=== PATIENT | female | born 1990 | race Caucasian/White ===

== ENCOUNTER 2023-07-21 09:24 | Emergency (ER) | payer OTHER, SELFPAY ==
[2023-07-21] VITALS (12 sets, daily range): BP systolic 102–131; BP diastolic 59–83; PULSE 68–85; RESP 14–20; TEMP 36.4–36.7; O2SAT 100
--- NOTE | 2023-07-21 09:45 | ED.GENADULT ---
HPI - General Adult General Chief complaint: Unspecified Stated complaint: migraine, vision problems Time Seen by Provider: 07/21/23 09:36 History of Present Illness HPI narrative: 32-year-old female with a reported history of migraines reports for evaluation for a generalized migraine that started 30 minutes prior to arrival. Patient states 30 minutes prior to migraine starting, she began having loss of vision in her right peripheral eye. states she has experienced this in the past, however normally her headaches do not occur with the peripheral vision loss simultaneously. She is also reporting vertigo like symptoms. States it feels like the room is spinning which is worse when she moves her head quickly. She went to urgent care yesterday and states they did not do anything about it . She states her peripheral vision loss has improved since she has been in the ED and she is still feeling mildly vertiginous. She denies head injury or trauma, syncope, diplopia or blurred vision, chest pain or shortness of breath, palpitations, fever, focal numbness or weakness. Denies otalgia but does states she feels congested. She has not been taking her antihistamines because she is planning to see an overweaver soon. Related Data Allergies Allergy/AdvReac Type Severity Reaction Status Date / Time No Known Allergies Allergy Verified 07/21/23 09:57 Review of Systems Review of Systems: CONSTITUTIONAL: Denies fever, chills, or sweats. EYES: Denies visual changes, redness, or discharge. ENT: see HPI CARDIOVASCULAR: Denies chest pain, palpitations, or edema. RESPIRATORY: Denies cough or dyspnea. GASTROINTESTINAL: Denies abdominal pain, nausea, vomiting, or diarrhea. GENITOURINARY: Denies dysuria or hematuria. SKIN: Denies rash or itching. MUSCULOSKELETAL: Denies back pain, joint pain, or myalgia. NEUROLOGIC: See HPI PSYCHIATRIC: Denies anxiety or depression. Exam Narrative: GENERAL: Well-appearing, well-nourished, and in no acute distress. patient resting comfortably in exam bed. She is pleasant and conversational. Playing on her phone HEAD: Normocephalic, atraumatic. EYES: PERRLA and EOMI. peripheral vision intact on exam ENT: Nares clear, no rhinorrhea or epistaxis. Mucous membranes moist. posterior pharynx without erythema, edema, no tonsillar hypertrophy. Uvula is midline. Bilateral TMs are cedeno nonbulging. Normal canals. NECK: Supple. No nuchal rigidity CHEST: Clear to auscultation. No respiratory distress. HEART: Regular rate and rhythm. No murmur heard. Normal peripheral pulses. ABDOMEN: Soft, nontender, nondistended, normal active bowel sounds. EXTREMITIES: Normal range of motion. No edema. SKIN: Warm, dry, no rash. NEURO: No focal deficits. Alert and oriented x3. cranial nerves 2-12 intact. Strength 5/5 in BUE and BLE. Sensation intact throughout. Normal [id number]. No pronator drift. Course Vital Signs Vital signs: Vital Signs Temperature 97.6 F 07/21/23 09:26 Pulse Rate 74 07/21/23 09:26 Respiratory Rate 18 07/21/23 09:26 Blood Pressure 131/78 07/21/23 09:26 Pulse Oximetry 100 07/21/23 09:26 Temperature 97.6 F 07/21/23 09:26 Pulse Rate 74 07/21/23 09:26 Respiratory Rate 18 07/21/23 09:26 Blood Pressure 131/78 07/21/23 09:26 Pulse Oximetry 100 07/21/23 09:26 Medical Decision Making MDM Narrative Medical decision making narrative: 32-year-old female with a history of self-reported migraines reports for evaluation for migraine and peripheral vision loss which she has had in the past, Along with vertigo. See HPI for further history. Vitals are stable and patient is well-appearing on exam. She is neurovascularly intact. No symptoms of meningitis. SAH r/o with Winner rule. CBC and chemistries are unremarkable. COVID, flu and RSV are negative. negative. EKG shows sinus rhythm, [place] interval is short at 1:19 a.m., no delta waves, no ischemic change
[2023-07-21 10:06] LABS: Basophils Absolute Auto 0.1 K/mm3 (0.0-0.1); Basophils Percent Auto 0.5 % (0.2-1.2); Eosinophils Absolute Auto 0.1 K/mm3 (0-0.3); Eosinophils Percent Auto 1.4 % (0-4.4); Hemoglobin 14.1 g/dL (12.0-15.0); Immature Granulocyte Absolute 0.03 K/mm3 (0.00-0.031); Immature Granulocyte Percent A 0.3 % (0-0.5); Lymphocytes Absolute Auto 2.88 K/mm3 (0.9-3.2); Lymphocytes Percent Auto 31.2 % (18.3-44.2); Mean Corpuscular Hemoglobin 28.5 pg (26-34); Mean Corpuscular Volume 88.9 fl (80-100); Monocytes Absolute Auto 0.5 K/mm3 (0.1-0.6); Monocytes Percent Auto 5.3 % (2.6-8.5); Neutrophils Absolute Auto 5.6 K/mm3 (1.3-6.7); Neutrophils Percent Auto 61.3 % (45.5-73.1); Platelet Count Result 313 k/mm3 (150-375); Red Blood Count 4.95 M/mm3 (4.2-5.4); Red Cell Distribution Width 12.5 % (11.5-14.5); White Blood Count 9.2 K/mm3 (4.5-10.0)
[2023-07-21 10:20] LABS: Anion Gap 10 mmol/L (8-16); Blood Urea Nitrogen 11 mg/dL (7-17); Calcium 9.1 mg/dL (8.4-10.2); Carbon Dioxide 23 mmol/L (22-30); Chloride 106 mmol/L (98-107); Estimated CRCL calculation 126 ml/min; Estimated Glomerular Filt Rate > 60; Glucose 91 mg/dL (65-110); Sodium 139 mmol/L (137-145)
[2023-07-21 10:36] LABS: Beta HCG Quantitative < 2.39 mIU/ML
[2023-07-21] MEDS: diphenhydrAMINE HCl INJ 50 MG/ML VIAL 25 MG IV PUSH (10:41)
[2023-07-21 10:42] LABS: Influenza A QL RT-PCR Negative (Negative); Influenza B QL RT-PCR Negative (Negative); RSV RNA, RT-PCR Negative (Negative); SARS-CoV-2 RNA PCR Negative (Negative)
[2023-07-21] MEDS: KETOROLAC 15 MG/ML VIAL (*BKC) IV PUSH (10:44)
[2023-07-21] MEDS: PROCHLORPERAZINE EDISYLATE 10 MG/2 ML VIAL IV PUSH (10:44)
[2023-07-21] MEDS: SODIUM CHLORIDE 0.9% IV 1,000 ML 999 ML IV CONT ×2 (10:49→12:06)
[2023-07-21 10:50] LABS: SPREG INTERNAL CONTROL Positive; Serum Qual hCG Negative
--- NOTE | 2023-07-21 11:39 | ECG_ITS ---
Measurements Intervals [place] Rate: 76 P: 29 [place]: 119 QRS: 58 QRSD: 78 T: 20 QT: 397 QTc: 448 Interpretive Statements SINUS RHYTHM WITH SHORT [place] INTERVAL NO PREVIOUS ECG AVAILABLE FOR COMPARISON Electronically Signed On 07-21-2023 16:38:38 RUBBER TIRE CURER by Jeanie Simmons M.D.
[2023-07-21] MEDS: diazePAM INJ (*CRX) 10 MG/2 ML SYRINGE 5 MG IV PUSH (12:07)
== END 2023-07-21 12:54 | disposition home or self-care (01) ==
PROVIDERS: Emergency Provider Physician Assistant
DX: G43.B0 Ophthalmoplegic migraine, not intractable (principal); R42 Dizziness and giddiness; Z20.822 Contact with and (suspected) exposure to COVID-19
CPT/HCPCS: 36415; 80048; 84702; 84703; 85025; 87637; 93005; 96361; 96374; 96375; 99284; J0780; J1200; J1885; J3360; J7030

== ENCOUNTER 2023-07-26 17:32 | Observation (INO) | payer OTHER, SELFPAY ==
[2023-07-26] VITALS (20 sets, daily range): BP systolic 100–141; BP diastolic 61–89; PULSE 80–102; RESP 12–24; TEMP 36.6–36.8; O2SAT 97–100
--- NOTE | ~2023-07-26 | MR_ITS ---
MRI of the brain Clinical History: Dizziness, family history of multiple sclerosis Technique: Axial and sagittal T1-weighted images were acquired. These were followed by axial T2-weigh tin, diffusion weighted, gradient, and FLAIR images. Following intravenous administration of 15 cc Mu ltiHance gadolinium, T1-weighted fat-sat imaging was performed in the axial, coronal, and sagittal pl anes. Findings: No abnormal signal seen in the brain parenchyma. No acute infarct, intracranial hemorrhage, or mass lesion. Ventricles and subarachnoid spaces are unremarkable. Orbits are unremarkable. Paranasal sinuses and m astoid air cells are clear. Major intracranial flow voids are intact. Sagittal midline structures are intact. No abnormal postcontrast enhancement identified. IMPRESSION: Unremarkable exam. Reviewed, dictated and finalized at location . CASTER IMPRESSION: Unremarkable exam.
--- NOTE | ~2023-07-26 | CT_ITS ---
EXAMINATION: CTA brain carotid DATE: 07/26/2023 22:03 INDICATION: Vertigo. TECHNIQUE: Computed tomographic angiography (CTA) of the head was performed without and with 100 mL O mnipaque-350 intravenous contrast. CTA of the neck was performed with intravenous contrast. Automated exposure control and iterative reconstruction technique were employed. The dose-length product was 1 929.02 mGy-cm. Maximum intensity projection and volume rendered 3D-reconstructions were created by kelsey browning technologist on a separate workstation. COMPARISON: None. FINDINGS: HEAD CTA: There is no intracranial hemorrhage, acute infarction, or abnormal intracranial mass lesion . The ventricles are normal in size. The orbits are normal. The paranasal sinuses are clear. The mast oid air cells are normal. Right vertebral artery is dominant. There is no significant stenosis of bas ilar artery or the posterior cerebral arteries. The posterior communicating arteries are normal. Ther e is no significant stenosis of the intracranial internal carotid arteries or anterior or middle cere bral arteries. Anterior communicating artery is normal. There is no aneurysm. NECK CTA: There are no pathologically enlarged lymph nodes. There is no significant stenosis of the v ertebral arteries. There is no visible plaque in the proximal internal carotid arteries. There is 0% stenosis of the proximal right internal carotid artery relative to normal distal artery lumen diamete r (NASCET criteria). There is 0% stenosis of the proximal left internal carotid artery relative to no rmal distal artery lumen diameter. There is mild cervical spondylosis. IMPRESSION: 1. Normal brain. No aneurysm or significant intracranial arterial stenosis. 2. 0% stenosis of the proximal internal carotid arteries relative to normal distal artery lumen diame ters (NASCET criteria). Reviewed, dictated and finalized at location E. PREVENTION FORESTER IMPRESSION: 1. Normal brain. No aneurysm or significant intracranial arterial stenosis. 2. 0% stenosis of the proximal internal carotid arteries relative to normal dis jessi artery lumen diameters (NASCET criteria).
--- NOTE | 2023-07-26 17:34 | ECG_ITS ---
Measurements Intervals [place] Rate: 89 P: 61 [place]: 140 QRS: 62 QRSD: 78 T: 52 QT: 355 QTc: 434 Interpretive Statements SINUS RHYTHM POSSIBLE LEFT ATRIAL ENLARGEMENT BASELINE WANDER- AVR, AVL BORDERLINE ECG COMPARED TO ECG 07/21/2023 12:13:16 NO SIGNIFICANT CHANGES Electronically Signed On 07-26-2023 18:51:12 TAPE SEWER by Benjamin Chin D.O.
--- NOTE | 2023-07-26 18:41 | ED.DIZZY ---
HPI - Dizziness General Chief Complaint: Dizziness Stated Complaint: Dizziness Time Seen by Provider: 07/26/23 18:05 History of Present Illness HPI Narrative: 33-year-old female with a history of migraines reports for evaluation for vertiginous symptoms x6 days. Patient describes her dizziness as the room spinning. She is evaluated by urgent care at the onset of her symptoms but states that did not do anything, therefore came to the emergency department on 07/21 for further evaluation. In the ED, her symptoms included a headache, vertigo and right-sided peripheral vision deficit which resolved. In the ED she was found to be neurologically intact. Her workup was largely unremarkable. She received a headache cocktail and Valium with resolution of symptoms. She is ambulatory in the ED and discharged with meclizine and Zofran. Patient reports back today because she states her vertigo his return. She had a headache earlier but took her rizatriptan and Dramamine with resolution. She states that her vertigo has been persistent since her sx came back from her ED visit. She states it is always present, even when she is lying still. She does state that it gets worse with quick movements. She has not had any more vision deficits since she was in the ED. Of note, she was seen at the sock and stocking ironer's office yesterday for concern for being allergic to cats. She had negative allergy testing but was discharged with a script for azithromycin and Flonase for symptoms of rhinorrhea, nasal congestion, red and puffy eyes and a scratchy throat. Patient states the symptoms have been persistent for 1 month. She denies fever, chest pain or shortness of breath, palpitations, syncope, vomiting, diarrhea, blood in her stools or dark tarry stools, focal numbness or weakness. She reports vaginal spotting today which she is attributing to her period. Related Data Home Medications Medication Instructions Recorded Confirmed fluticasone propionate 50 2 spray intranasal DAILY 07/26/23 07/27/23 mcg/actuation nasal spray,suspension methylprednisolone 4 mg tablets in 4 mg PO DAILY 07/26/23 07/27/23 a dose pack buspirone 10 mg tablet 10 mg PO BID 07/27/23 07/27/23 ondansetron 4 mg disintegrating 4 mg PO Q8H PRN Nausea And Vomiting 07/27/23 07/27/23 tablet rizatriptan 10 mg disintegrating 10 mg PO PRN PRN Migraine Headache 07/27/23 07/27/23 tablet spironolactone 50 mg tablet 50 mg PO BID 07/27/23 07/27/23 Allergies Allergy/AdvReac Type Severity Reaction Status Date / Time No Known Allergies Allergy Verified 07/26/23 17:32 Review of Systems Review of Systems: CONSTITUTIONAL: Denies fever, chills, or sweats. EYES: Denies visual changes, redness, or discharge. ENT: See HPI CARDIOVASCULAR: Denies chest pain, palpitations, or edema. RESPIRATORY: Denies cough or dyspnea. GASTROINTESTINAL: Denies abdominal pain, nausea, vomiting, or diarrhea. GENITOURINARY: Denies dysuria or hematuria. SKIN: Denies rash or itching. MUSCULOSKELETAL: Denies back pain, joint pain, or myalgia. NEUROLOGIC: See HPI PSYCHIATRIC: Denies anxiety or depression. [facility] Family History Family History Father Multiple sclerosis, primary progressive Mother Social History Social History Smoking status: Never smoker Alcohol intake: current Substance use: current Substance use type: marijuana Do You Feel Safe in your Home?: Yes Lack of Transportation: No Lack of Food: Never True Current Housing: I Have Housing Concerned About Future Housing: No Difficulty Paying Gas/Electric Bills: No Difficulty Paying for Meds: No Currently Unemployed: No Education: High School Diploma/GED Difficulty w/ Childcare or Family Care: No Spiritual care concerns: No Exam Narrative: GENERAL: Well-appearing, well-nourished, and in no acute distress. Isaías
[2023-07-26 19:14] LABS: Basophils Percent Auto 0.3 % (0.2-1.2); Eosinophils Percent Auto 0.1 % (0-4.4); Hematocrit 43.9 % (37.0-47.0); Hemoglobin 14.3 g/dL (12.0-15.0); Immature Granulocyte Absolute 0.04 K/mm3 (0.00-0.031); Immature Granulocyte Percent A 0.3 % (0-0.5); Lymphocytes Absolute Auto 1.42 K/mm3 (0.9-3.2); Lymphocytes Percent Auto 11.6 % (18.3-44.2); Mean Corpuscular HGB Conc 32.6 g/dl (32-36); Mean Corpuscular Hemoglobin 28.7 pg (26-34); Mean Corpuscular Volume 88.2 fl (80-100); Mean Platelet Volume 9.9 fl (7.4-10.4); Monocytes Absolute Auto 0.4 K/mm3 (0.1-0.6); Monocytes Percent Auto 3.4 % (2.6-8.5); Neutrophils Absolute Auto 10.4 K/mm3 (1.3-6.7); Neutrophils Percent Auto 84.3 % (45.5-73.1); Platelet Count Result 350 k/mm3 (150-375); Red Blood Count 4.98 M/mm3 (4.2-5.4); Red Cell Distribution Width 12.6 % (11.5-14.5); White Blood Count 12.3 K/mm3 (4.5-10.0)
[2023-07-26] MEDS: SODIUM CHLORIDE 0.9% IV 1,000 ML 999 ML IV CONT (19:26)
[2023-07-26 19:29] LABS: Alanine Aminotransferase 19 U/L (6-35); Albumin Level 4.9 g/dL (3.5-5.1); Alkaline Phosphatase 73 U/L (38-126); Anion Gap 12 mmol/L (8-16); Aspartate Amino Transferase 26 U/L (14-36); Bilirubin,Total 0.6 mg/dL (0.2-1.3); Blood Urea Nitrogen 10 mg/dL (7-17); Calcium 9.9 mg/dL (8.4-10.2); Carbon Dioxide 25 mmol/L (22-30); Chloride 101 mmol/L (98-107); Estimated CRCL calculation 108 ml/min; Estimated Glomerular Filt Rate > 60; Glucose 104 mg/dL (65-110); Sodium 138 mmol/L (137-145)
--- NOTE | 2023-07-26 19:33 | PC.NURSE ---
Per EDP LEONEL Ledezma give patient dose of Meclazine and if symptoms still persist then give 2.5mg Valium IVP.
[2023-07-26] MEDS: MECLIZINE HCL 25 MG TABLET PO (19:45)
[2023-07-26 20:11] LABS: Influenza A QL RT-PCR Negative (Negative); Influenza B QL RT-PCR Negative (Negative); RSV RNA, RT-PCR Negative (Negative); SARS-CoV-2 RNA PCR Negative (Negative)
[2023-07-26 21:00] LABS: Appearance Urine Cloudy (Clear); Bacteria Urine 1+ /hpf; Bilirubin Urine Negative (Negative); Blood Urine Trace (Negative); Color Urine Yellow (Yellow); Glucose Urine UA Negative (Negative); Ketones Urine Negative (Negative); Leukocyte Esterase Ur 2+ LEU/UL (Negative); Nitrate Urine Negative (Negative); Non Pathogenic Casts 0-2; Protein Urine Negative (Negative); RBC Urine 0-2 /hpf (0-2); Specific Grav Ur 1.007 (1.001-1.035); Squamous Epithelial Cell Urine Moderate /hpf (Few); Urobilinogen Urine 0.2 mg/dL (<2.0); WBC Urine 21-50 /hpf; pH Urine 5.5 (5.0-9.0)
[2023-07-26 21:07] LABS: Add Urine Microscopic? YES
[2023-07-26] MEDS: ONDANSETRON INJ 4 MG/2 ML VIAL IV PUSH (22:10)
[2023-07-26] MEDS: diazePAM INJ (*CRX) 10 MG/2 ML SYRINGE 2.5 MG IV PUSH ×2 (22:11→22:57)
--- NOTE | 2023-07-26 23:19 | PM.IMHP ---
H&P: HPI History of Present Illness Date/Time: 07/26/23 23:19 Chief Complaint: Patient came to the ER for evaluation for persistent dizziness Narrative: She is a very pleasant lady with history of migraine headaches since she was 18 years of age. She takes Rizatriptan S which helps with her migraines. She came to the ER on 07/21/2023 complaining of dizziness associated with headache and nausea with resolved with rizatriptan and Benadryl. She was discharged home in stable condition. She came back again with similar symptoms. She is concerned because before her last ER visit she had loss of peripheral vision lost in bilateral eyes, muscle pain, dizziness and weakness. She gives a history of multiple sclerosis in her father. Given her recurrent dizziness, she is being placed under observation for brain MRI and neurological evaluation. Review of Systems Review of Systems: 14 systems were reviewed with pertinent positives and negatives per HPI. Except as documented in the HPI/progress notes, all other systems were reviewed and are negative. All systems reviewed & are unremarkable except as noted in HPI and below PMFSH Family History Family History Father Multiple sclerosis, primary progressive Mother Social History Social History Smoking status: Never smoker Alcohol intake: current Substance use: current Substance use type: marijuana Do You Feel Safe in your Home?: Yes Lack of Transportation: No Lack of Food: Never True Current Housing: I Have Housing Concerned About Future Housing: No Difficulty Paying Gas/Electric Bills: No Difficulty Paying for Meds: No Currently Unemployed: No Education: High School Diploma/GED Difficulty w/ Childcare or Family Care: No Spiritual care concerns: No Meds Home Medications and Allergies Home Medications Medication Instructions Recorded Confirmed Type meclizine 25 mg tablet 25 mg PO BID PRN dizziness #14 tabs 07/21/23 07/26/23 Rx fluticasone propionate 50 2 spray intranasal DAILY 07/26/23 07/27/23 History mcg/actuation nasal spray,suspension methylprednisolone 4 mg tablets in 4 mg PO DAILY 07/26/23 07/27/23 History a dose pack buspirone 10 mg tablet 10 mg PO BID 07/27/23 07/27/23 History ondansetron 4 mg disintegrating 4 mg PO Q8H PRN Nausea And Vomiting 07/27/23 07/27/23 History tablet rizatriptan 10 mg disintegrating 10 mg PO PRN PRN Migraine Headache 07/27/23 07/27/23 History tablet spironolactone 50 mg tablet 50 mg PO BID 07/27/23 07/27/23 History Allergies Allergy/AdvReac Type Severity Reaction Status Date / Time No Known Allergies Allergy Verified 07/26/23 17:32 Vital Signs Vital Signs - 24 hr 07/26/23 17:47 07/26/23 18:35 07/26/23 19:26 Temperature 36.8 C Pulse Rate 87 96 88 Respiratory Rate 20 Blood Pressure 119/77 Pulse Oximetry 100 07/26/23 19:26 07/26/23 20:04 07/26/23 20:05 Temperature 36.6 C Pulse Rate 85 87 97 Respiratory Rate 17 Blood Pressure 104/70 121/79 129/87 Pulse Oximetry 99 07/26/23 20:06 07/26/23 19:02 07/26/23 19:15 Temperature Pulse Rate 93 85 86 Respiratory Rate 16 16 Blood Pressure 141/89 H 103/79 Pulse Oximetry 99 97 07/26/23 19:16 07/26/23 19:30 07/26/23 19:32 Temperature Pulse Rate 80 84 86 Respiratory Rate 17 18 21 H Blood Pressure 104/70 100/73 Pulse Oximetry 98 99 97 07/26/23 19:45 07/26/23 19:47 07/26/23 20:00 Temperature Pulse Rate 90 80 92 Respiratory Rate 18 18 14 Blood Pressure 104/66 Pulse Oximetry 100 100 07/26/23 20:04 07/26/23 20:05 07/26/23 20:07 Temperature Pulse Rate 87 100 102 H Respiratory Rate 17 14 16 Blood Pressure 121/79 129/87 141/89 H Pulse Oximetry 07/26/23 22:02 07/26/23 22:20 07/26/23 23:13 Temperature Pulse Rate 98 92 96 Respiratory Rate 12 15 24 H Blood Pres
--- NOTE | 2023-07-26 23:55 | ADMGEN ---
This patient, Matti Oliva, was admitted to Medical Room 241-. Patient/family oriented to hospital policies and general routines including ID bracelet, bed and alarms, visiting hours, pain management, procedures, bathroom and other care routines, personal items, smoking policy, room service/diet, and visiting hours. Information on how to activate the Rapid Response Team has been discussed. Patient/Family are encouraged to report perceived risks to care and to ask questions if they do not understand what they are told or what they should do.
[2023-07-27] VITALS: PULSE 90; O2SAT 100; BMI 29.9
[2023-07-27 00:04] VITALS: BP 124/72; PULSE 86; RESP 18; TEMP 36.8; O2SAT 100
[2023-07-27 04:00] VITALS: PULSE 74
[2023-07-27] MEDS: methylPREDNISolone 4 MG TABLET PO ×2 (07:34→12:23)
[2023-07-27 08:00] VITALS: PULSE 74
[2023-07-27 08:05] VITALS: BP 110/63; PULSE 72; RESP 18; TEMP 37; O2SAT 100
[2023-07-27] MEDS: SPIRONOLACTONE 50 MG TABLET PO (08:19)
[2023-07-27] MEDS: RIZATRIPTAN BENZOATE 10 MG ODT PO (08:19)
[2023-07-27] MEDS: FLUTICASONE PROPIONATE 0.05% NA SPR 16 GM BTL (*BKC) 2 SPRAY NASAL (08:20)
--- NOTE | 2023-07-27 09:03 | WPDNEURCNPN ---
Assessment and Plan Assessment and plan (1) Dizziness: Code(s): R42 - Dizziness and giddiness Status: Acute (2) Vertigo: Code(s): R42 - Dizziness and giddiness Status: Acute (3) Migraine: Code(s): G43.909 - Migraine, unspecified, not intractable, without status migrainosus Status: Acute Plan Ms. Oliva is a 33 year old female with a history of migraines presenting for evaluation of vertigo. MRI brain done to rule out central causes, which is negative. She will need vestibular therapy to treat vestibular dysfunction as outpatient. Consult date: 07/27/23 Reason for consult: Vertigo HPI: Matti Oliva is a 33 year old female with a history of migraines presenting for dizziness. Patient first presented to [facility] ED for dizziness and migraine on 07/21. At that time she was complaining of migraine, vision loss in the R peripheral vision, room spinning sensation. She was given a migraine cocktail and dose of Valium, which seemed to help. She was discharged on meclizine and Zofran. No imaging was done at that time. However, patient presented again on 07/26 due to recurrence of vertigo. She again describes room spinning sensation, that is exacerbated by moving her head. In the ED she had a CTA brain/carotid that was normal. Her UA showed 2+LE, 21-50 WBC, 1+ bacteria. She received IV fluids, Zofran, meclizine, valium 2.5mg x 2 which seemed to help her symptoms. She was started on Rocephin for possible UTI and subsequently admitted. MRI brain normal. For her migraines, patient does not take any preventative agents. She does take Maxalt 10mg PRN. She feels that the Maxalt works fairly well for her. She still has some dizziness but it is better. She denies any headaches today. Review of Systems Review of Systems: All systems reviewed & are unremarkable except as noted in HPI and below PMFSH Family History Family History Father Multiple sclerosis, primary progressive Mother Social History Social History Smoking status: Never smoker Alcohol intake: current Substance use: current Substance use type: marijuana Do You Feel Safe in your Home?: Yes Lack of Transportation: No Lack of Food: Never True Current Housing: I Have Housing Concerned About Future Housing: No Difficulty Paying Gas/Electric Bills: No Difficulty Paying for Meds: No Currently Unemployed: No Education: High School Diploma/GED Difficulty w/ Childcare or Family Care: No Spiritual care concerns: No Meds Home Medications and Allergies Home Medications Medication Instructions Recorded Confirmed Type meclizine 25 mg tablet 25 mg PO BID PRN dizziness #14 tabs 07/21/23 07/26/23 Rx fluticasone propionate 50 2 spray intranasal DAILY 07/26/23 07/27/23 History mcg/actuation nasal spray,suspension methylprednisolone 4 mg tablets in 4 mg PO DAILY 07/26/23 07/27/23 History a dose pack buspirone 10 mg tablet 10 mg PO BID 07/27/23 07/27/23 History ondansetron 4 mg disintegrating 4 mg PO Q8H PRN Nausea And Vomiting 07/27/23 07/27/23 History tablet rizatriptan 10 mg disintegrating 10 mg PO PRN PRN Migraine Headache 07/27/23 07/27/23 History tablet spironolactone 50 mg tablet 50 mg PO BID 07/27/23 07/27/23 History Allergies Allergy/AdvReac Type Severity Reaction Status Date / Time No Known Allergies Allergy Verified 07/26/23 17:32 Vital Signs Vital Signs - 24 hr 07/26/23 17:47 07/26/23 18:35 07/26/23 19:26 Temperature 36.8 C Pulse Rate 87 96 88 Respiratory Rate 20 Blood Pressure 119/77 Pulse Oximetry 100 Oxygen Delivery 07/26/23 19:26 07/26/23 20:04 07/26/23 20:05 Temperature 36.6 C Pulse Rate 85 87 97 Respiratory Rate 17 Blood Pressure 104/70 121/79 129/87 Pulse Oximetry 99 Oxygen Delivery 07/26/23 20:06 07/26/23 19:02
[2023-07-27 12:00] VITALS: PULSE 76
--- NOTE | 2023-07-27 12:45 | PM.DS ---
DS: Admitting Diagnosis Discharge Date 07/27/23 Admitting Diagnosis Dizziness DS: Discharge Diagnosis Discharge Diagnosis (1) Vertigo: Code(s): R42 - Dizziness and giddiness Status: Acute (2) Abnormal urinalysis: Code(s): R82.90 - Unspecified abnormal findings in urine Status: Acute (3) UTI (urinary tract infection): Code(s): N39.0 - Urinary tract infection, site not specified Status: Acute (4) Dizziness: Code(s): R42 - Dizziness and giddiness Status: Acute DS: Summary Hospital Course Hospital Course: This is a 33-year-old female with past medical history of migraine headaches and takes Rizatriptan S which helps with her migraines.She presented to the ED on 07/26/2023 repeat plates of dizziness associated with headache and nausea. her dad has history of multiple sclerosis and due to her recurrent dizziness she is fearful of this. She placed under observation for brain MRI and neurological evaluation. Brain MRI revealed normal aging brain. Neurology recommending this tubular therapy as an outpatient and continue migraine medication. Labs and vital signs are stable and she is medically clear for discharge at this time. Time Spent with Patient Time attestation: Total time spent providing and/or coordinating discharge services: DS: Data Data Completed and Pending Labs on day of discharge: Labs from last 24 hours 07/26/23 19:03 WBC 12.3 H RBC 4.98 Hgb 14.3 Hct 43.9 MCV 88.2 MCH 28.7 MCHC 32.6 RDW 12.6 Plt Count 350 MPV 9.9 Immature Gran % (Auto) 0.3 Neut % (Auto) 84.3 H Lymph % (Auto) 11.6 L [place] % (Auto) 3.4 Eos % (Auto) 0.1 Baso % (Auto) 0.3 Lymph # (Auto) 1.42 [place] # (Auto) 0.4 Eos # (Auto) 0.0 Baso # (Auto) 0.0 Abs Immat Gran (auto) 0.04 H Absolute Neuts (auto) 10.4 H Absolute Nucleated RBC 0.0 Nucleated RBC % 0.0 Sodium 138 Potassium 4.0 Chloride 101 Carbon Dioxide 25 Anion Gap 12 BUN 10 Creatinine 0.70 Estim Creat Clear Calc 108 Estimated GFR > 60 Glucose 104 Calcium 9.9 Total Bilirubin 0.6 AST 26 ALT 19 Alkaline Phosphatase 73 Total Protein 9.0 H Albumin 4.9 Urine Color Yellow Urine Appearance Cloudy H Urine pH 5.5 Ur Specific [place] 1.007 Urine Protein Negative Urine Glucose (UA) Negative Urine Ketones Negative Ur Blood (Man) Trace Urine Nitrate Negative Urine Bilirubin Negative Urine Urobilinogen 0.2 Leukocyte Esterase Rfl 2+ H Urine RBC 0-2 Urine WBC 21-50 H Ur Squamous Epith Cells Moderate Urine Bacteria 1+ H Urine Casts 0-2 Influenza A (RT-PCR) Negative Influenza B (RT-PCR) Negative RSV (RT-PCR) Negative SARS-CoV-2 RNA (RT-PCR) Negative Discharge Plan Discharge Attending physician on discharge: Ya Keller Consulting providers: Melisa Montesinos; Brisa Mann Discharging Clinician: Romi Dobson Patient Disposition: Home, Self-Care Activity: as tolerated Diet: regular Discharge Instructions: UTI suspected the S recommend course of antibiotics. Medications: Cefdinir 300 mg twice daily for 6 more days Recommend outpatient vestibular therapy. Discharge disposition: Take medications as prescribed Monitor blood pressures Avoid social areas, you wear a mask when in social settings Encouraged to continue with yearly vaccinations Return to the emergency department if he developed sudden shortness of breath, chest pain, nausea, vomiting, upset stomach or intractable diarrhea Return to the emergency department if you develop fever greater than 100.4 Follow-up with the primary care physician within 1-2 weeks Thank you for [facility] for your healthcare needs Patient Instructions: Antibiotic Form Stand Alone Forms: General Discharge Information Follow-up/Referrals: Lizandro Felix MD [Primary Care Provider] - Discharge Medications: New cefdinir 300 mg capsule 300 mg PO Q12H Qty: 12 0RF Co
== END 2023-07-27 13:35 | disposition home or self-care (01) ==
LOC: ANHED 22:48 → ANH2MED 23:53
PROVIDERS: Student in an Organized Health Care Education/Training Program; Admitting Provider Family Medicine; Emergency Provider Physician Assistant; PCP Internal Medicine; Visit Provider Hospitalist
DX: R42 Dizziness and giddiness (principal); G43.909 Migraine, unspecified, not intractable, without status migrainosus; H53.459 Other localized visual field defect, unspecified eye; R11.2 Nausea with vomiting, unspecified; R82.90 Unspecified abnormal findings in urine; N39.0 Urinary tract infection, site not specified; Z20.822 Contact with and (suspected) exposure to COVID-19; F10.90 Alcohol use, unspecified, uncomplicated; F12.90 Cannabis use, unspecified, uncomplicated; Z79.52 Long term (current) use of systemic steroids; Z79.899 Other long term (current) drug therapy
CPT/HCPCS: 36415; 70496; 70498; 70553; 80053; 81001; 81025; 85025; 87086; 87088; 87637; 93005; 96361; 96365; 96375; 96376; 99285; A9270; A9577; G0378; J0696; J2405; J3360; J7030; Q9967